=== PATIENT | female | born 1930 | race Caucasian/White ===

== ENCOUNTER 2019-05-24 17:57 | Emergency (ER) | payer OTHER, MEDICARE ==
[2019-05-24] MEDS ORDERED: DIPH/PERTUSS(ACELL)/TETANUS VAC/PF 0.5 ML SYR (>=10YO) IM ONE (19:11)
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
[2019-05-24 20:59] VITALS: BP 173/95
== END 2019-05-24 19:40 | disposition home or self-care (01) ==
LOC: ER 17:57
PROC: 0HQDXZZ Repair Right Lower Arm Skin, External Approach (ICD-10-PCS; principal; 2019-05-24)
DX: S51.811A Laceration without foreign body of right forearm, initial encounter (principal); F03.90 Unspecified dementia, unspecified severity, without behavioral disturbance, psychotic disturbance, mood disturbance, and anxiety; I10 Essential (primary) hypertension; V89.2XXA Person injured in unspecified motor-vehicle accident, traffic, initial encounter
CPT/HCPCS: 90471; 90715; 99283